=== PATIENT | male | born 1960 | race Caucasian/White ===

== ENCOUNTER 2020-10-13 01:53 | Emergency (ER) | payer MEDICAID ==
[~2020-10-13] VITALS: Ht 175.3 cm; Wt 70.0 kg
[2020-10-13 02:11] VITALS: BP 150/97
== END 2020-10-13 02:39 | disposition home or self-care (01) ==
LOC: ER 01:54
DX: Z02.89 Encounter for other administrative examinations (principal); Z59.0 Homelessness; Y09 Assault by unspecified means
CPT/HCPCS: 99283

== ENCOUNTER 2020-10-15 17:17 | Emergency (ER) | payer MEDICAID ==
[~2020-10-15] VITALS: Ht 175.3 cm; Wt 64.1 kg
--- NOTE | 2020-10-15 18:02 | NUR ---
Dr Vargas at bedside.
[2020-10-15 18:21] VITALS: BP 143/88
== END 2020-10-15 18:23 | disposition home or self-care (01) ==
LOC: ER 17:18
DX: F22 Delusional disorders (principal); R11.2 Nausea with vomiting, unspecified; F17.200 Nicotine dependence, unspecified, uncomplicated; F15.90 Other stimulant use, unspecified, uncomplicated; F11.90 Opioid use, unspecified, uncomplicated
CPT/HCPCS: 99281

== ENCOUNTER 2020-10-19 17:25 | Emergency (ER) | payer MEDICAID ==
[~2020-10-19] VITALS: Ht 175.3 cm; Wt 67.2 kg
[2020-10-19] MEDS ORDERED: buprenorphine/naloxone 8MG-2MG SUBlingual film SL ONE (18:15)
[2020-10-19] MEDS ORDERED: BUPR1FIL3 SL (18:22)
[2020-10-19 18:27] LABS: URINE AMPHETAMINE SCREEN NEGATIVE (Neg); URINE BARBITUATE SCREEN NEGATIVE (Neg); URINE BENZODIAZEPINES SCREEN NEGATIVE (Neg); URINE CANNABINOID SCREEN NEGATIVE (Neg); URINE COCAINE SCREEN NEGATIVE (Neg); URINE METHADONE SCREEN NEGATIVE (Neg); URINE OPIATE SCREEN NEGATIVE (Neg); URINE PHENCYCLIDINE SCREEN NEGATIVE (Neg)
[2020-10-19 18:35] LABS: BASOPHILS # (AUTO) 0.1 X10'3 (0-0.2); BASOPHILS % (AUTO) 0.7 % (0-1); EOSINOPHILS # (AUTO) 0.2 X10'3 (0-0.9); EOSINOPHILS % (AUTO) 1.7 % (0-6); HEMATOCRIT 42.2 % (42.0-52.0); HEMOGLOBIN 14.4 g/dl (14.0-17.9); LYMPHOCYTES # (AUTO) 3.3 X10'3 (1.1-4.8); LYMPHOCYTES % (AUTO) 30.3 % (21-51); MEAN CORPUSCULAR HEMOGLOBIN 31.6 PG (27.0-31.0); MEAN CORPUSCULAR HGB CONC 34.1 g/dL (33.0-36.5); MEAN CORPUSCULAR VOLUME 92.6 FL (78-98); MEAN PLATELET VOLUME 7.7 FL (7.4-10.4); MONOCYTES % (AUTO) 9.4 % (2-12); NEUTROPHILS # (AUTO) 6.3 X10'3 (1.8-7.7); NEUTROPHILS % (AUTO) 57.9 % (42-75); PLATELET COUNT 305 X10'3 (140-440); RED BLOOD COUNT 4.56 X10'6 (4.70-6.10); RED CELL DISTRIBUTION WIDTH 13.3 % (11.5-14.5); WHITE BLOOD COUNT 10.9 X10'3 (4.5-11.0)
[2020-10-19 18:43] LABS: ALANINE AMINOTRANSFERASE 170 U/L (12-78); ALBUMIN 3.9 G/DL (3.4-5.0); ALKALINE PHOSPHATASE 58 IU/L (46-116); ANION GAP 8 (8-16); ASPARTATE AMINO TRANSFERASE 50 U/L (10-37); BILIRUBIN,TOTAL 0.2 MG/DL (0.1-1.0); BLOOD UREA NITROGEN 13 MG/DL (7-18); BUN/CREATININE RATIO 14.4 (5.4-32.0); CALCIUM 9.8 MG/DL (8.5-10.1); CHLORIDE 101 MMOL/L (99-107); GLUCOSE 104 MG/DL (70-104); POTASSIUM 4.3 MMOL/L (3.5-5.1); SODIUM 139 MMOL/L (135-145); TOTAL CARBON DIOXIDE 30.5 MMOL/L (24-32); TOTAL PROTEIN 7.7 G/DL (6.4-8.2); eGFR 86 ML/MIN
[2020-10-19 18:52] LABS: ETHANOL < 0.010 GM/DL (0.0-0.010)
[2020-10-19] MEDS ORDERED: nicotine 14mg patch - 24hr TD ONE (19:00)
--- NOTE | 2020-10-19 19:28 | NUR ---
[facility] packet has been sent.
[2020-10-19] MEDS: buprenorphine/naloxone 8MG-2MG SUBlingual film SL SCH (21:52)
--- NOTE | 2020-10-20 06:40 | NUR ---
RVCD report from Brittany RN, Pt moved from room 11 in Main RN to room 24 in overflow by staff without difficulty, no needs at this time, Assumed care
--- NOTE | 2020-10-20 07:46 | NUR ---
pt is asleep, no needs at this time
[2020-10-20] MEDS ORDERED: nicotine 14mg patch - 24hr TD ONE (08:00)
--- NOTE | 2020-10-20 08:46 | NUR ---
PT ATE BREAKFAST, ACCEPTED MEDS WITH NO DIFFICULTY, NO NEEDS
[2020-10-20] MEDS: buprenorphine/naloxone 8MG-2MG SUBlingual film SL SCH ×3 (08:49→20:16)
--- NOTE | 2020-10-20 09:40 | NUR ---
PT IS ASLEEP, NO NEEDS AT THIS TIME
--- NOTE | 2020-10-20 10:30 | NUR ---
PT ABULATED TO THE BATHROOM, NO NEEDS AT THIS TIME
--- NOTE | 2020-10-20 11:41 | NUR ---
PT SUPINE IN BED, REGULAR BREATHING OBSERVED, NO NEEDS AT THIS TIME
--- NOTE | 2020-10-20 12:32 | NUR ---
PT IS SIGNING PAPERWORK WITH STAFF, CALM, NO NEEDS AT THIS TIME
--- NOTE | 2020-10-20 13:27 | NUR ---
PT SITTING UP IN BED EATING LUNCH, NO DISTRESS NOTED AT THIS TIME.
--- NOTE | 2020-10-20 13:56 | NUR ---
GAVE NURSE TO NURSE TO [facility] AT [facility], THEY WILL CALL BACK WITH ACCEPTANCE OR [facility]
--- NOTE | 2020-10-20 14:30 | NUR ---
pt req coffee, no other needs at this time
--- NOTE | 2020-10-20 14:59 | NUR ---
SPOKE TO [facility] RE: [facility] REQ FOR 30 DAY SUPPY OF SUBOXONE FOR PT PRIOR TO ACCEPTING HIM
--- NOTE | 2020-10-20 15:30 | NUR ---
called Da Real, intranet specialist [phone] to see if he can obtain an RX for 30 day suppy of Suboxone for pt from [place] Ling at [facility], left message to call us back
--- NOTE | 2020-10-20 15:30 | NUR ---
pt gave name of his provider to call re: script
--- NOTE | 2020-10-20 16:00 | NUR ---
left a message at [facility] [phone] req call back re: need for script for Suboxone for 30 day supply for to to be able to be placed at an inpatient facility
--- NOTE | 2020-10-20 16:05 | NUR ---
spoke with Kimberly Downing, case management re: issue, she will talk to social science teacher
--- NOTE | 2020-10-20 17:01 | NUR ---
pt sleeping, no needs at this time
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
--- NOTE | 2020-10-20 22:49 | NUR ---
The patient appears to be sleeping at this time. He has not demonstrated any kind of distress.
--- NOTE | 2020-10-20 23:53 | NUR ---
The patient appears to be sleeping
--- NOTE | 2020-10-21 02:27 | NUR ---
The patient appears to be sleeping but has been up to the bathroom numerous times.
--- NOTE | 2020-10-21 04:55 | NUR ---
The patient was up and down during the night. Restless sleep.
[2020-10-21 05:57] VITALS: BP 108/70
--- NOTE | 2020-10-21 06:58 | NUR ---
PT AWAKE SITTING UP IN BED DRINKING COFFEE. NO NEEDS AT THIS TIME
--- NOTE | 2020-10-21 08:00 | NUR ---
PT SITTING ON SIDE OF BED EATING BREAKFAST
[2020-10-21] MEDS: buprenorphine/naloxone 8MG-2MG SUBlingual film SL SCH ×2 (08:28→13:11)
--- NOTE | 2020-10-21 09:41 | NUR ---
PT RESTING ON BACK WITH EYES CLOSED RR EQUAL AND UNLABORED
[2020-10-21] MEDS ORDERED: nicotine 14mg patch - 24hr TD ONE (10:45)
--- NOTE | 2020-10-21 11:50 | NUR ---
PT REQUESTED NICOTINE PATCH. ORDER FROM VIOLETTA VALDEZ. PATCH PLACE ON PT. PT RESTING ON BACK WITH EYES CLOSED RR EQUAL AND UNLABORED
--- NOTE | 2020-10-21 11:59 | NUR ---
UP TO BR STEADY GAIT
--- NOTE | 2020-10-21 13:17 | NUR ---
PT BECAME SLIGHTLY AGGITATED RE THE SCHEDULE OF HIS SUBOXONE. HES STATES SEEMS LIKE YOU GUYS JUST GIVE IT TO ME WHENEVER YOU WANT TO. EDUCATED PT OF THE PHARMACYS TIMING OF THE MED ,,. REVIEWED WITH HIM THE TIMES THE MED HAS BEEN GIVE SINCE HIS ARIVAL AND EACH TIME HAS BEEN WITHIN THE SCHEDULED TIME. PT STATES HE UNDERSTANDS NOW.
== END 2020-10-21 13:54 ==
LOC: ER 17:26
DX: F22 Delusional disorders (principal); Z20.822 Contact with and (suspected) exposure to COVID-19; F15.959 Other stimulant use, unspecified with stimulant-induced psychotic disorder, unspecified; R45.850 Homicidal ideations; F11.90 Opioid use, unspecified, uncomplicated; Z59.0 Homelessness; Z56.0 Unemployment, unspecified; Z79.899 Other long term (current) drug therapy
CPT/HCPCS: 36415; 80053; 80305; 80320; 84443; 85025; 87426; 99285